=== PATIENT | male | born 1975 | race Two or more races ===

== ENCOUNTER 2024-07-06 11:48 | Emergency (ER) | payer MEDICAID, SELFPAY ==
[2024-07-06 11:49] VITALS: BMI 37.1
[2024-07-06 12:30] VITALS: BP 116/72; PULSE 95; RESP 18; TEMP 37.1; O2SAT 97
--- NOTE | 2024-07-06 12:31 | XR_ITS ---
Examination: Lumbar spine 3 views Technique one AP lateral coned lateral lower lumbar spine 3 views Date and time: July 06, 2024 1248 hours INDICATIONS: Injury to the back several years ago with more severe back pain the last 3 days FINDINGS: Lumbar levoscoliosis 8 degrees No lumbar fracture Mild disc narrowing L5-S1. No spondylolisthesis IMPRESSION: Mild disc narrowing L5-S1
--- NOTE | 2024-07-06 12:31 | XR_ITS ---
Examination: Thoracic spine 3 views Technique one AP lateral thoracic spine 2 views Date and time: July 06, 2024 1245 hours INDICATIONS: Back pain beginning 3 days ago injury several years ago FINDINGS: Adequate alignment thoracic vertebral bodies No acute thoracic fracture Mild diffuse thoracic disc narrowing IMPRESSION: Mild diffuse thoracic degenerative disc disease
--- NOTE | 2024-07-06 12:33 | EDNOTE_ITS ---
<Statement entered by Jessica Tidwell MD - 07/09/24 06:33> As co-signing physician, I was present and available for consult prn. I concur with the plan and care as documented by the midlevel provider. ED Back Injury Pain RME/HPI General Chief Complaint: Back Pain/Injury Stated Complaint: MID-BACK SCIATIC NERVE PAIN X2 DAYS Time Seen by Provider: 07/06/24 12:18 Source: patient Arrival date/time: 07/06/24 11:48 48-year-old male with no known medical history presents to the emergency room with a chief complaint of mid and lower back pain x 2 days. 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 Mode of arrival: ambulatory Limitations: no limitations Related Data Previous Rx's ?Medication ?Instructions ?Recorded baclofen 10 mg tablet 10 mg PO BID #14 tabs ibuprofen 600 mg tablet 600 mg PO Q6H PRN fever or p ain 10/07/18 #30 tabs chlordiazepoxide HCl 25 mg capsule 25 mg PO TID PRN al cohol 05/02/23 withdrawal #20 caps hydrocortisone 2.5 % topical cream [address] N hemorrhoids 05/19/23 with perineal applicator #30 grams (Procto-Med ) Allergies Allergy/AdvReac Type Severity Reaction Status Date / Time avocado Allergy Severe Swelling Verified 07/06/24 11:52 of Lip/Tongue/Throat grape Allergy Severe ITCHY Verified 07/06/24 11:52 THROAT orange juice Allergy Severe ITCHING Verified 07/06/24 11:52 THROAT peanut Allergy Severe ITCHY Verified 07/06/24 11:52 THROAT strawberry Allergy Severe ITCHY Verified 07/06/24 11:52 THROAT ORANGES Allergy Severe ITCHY Uncoded 07/06/24 11:52 THROAT WALNUTS Allergy Severe ITCHY Uncoded 07/06/24 11:52 THROAT Review of Systems Review of Systems Systems Reviewed: All systems reviewed, normal except as documented Constitutional Constitutional: Reports system reviewed and no additional complaints, except as documented, Denies fatigue, Denies fever(s), Denies headache(s) and Denies weakness Eyes Eyes: Reports system reviewed and no additional complaints, except as documented, Denies blurry vision and Denies change in vision ENT Ears, Nose, Mouth, and Throat: Reports system reviewed and no additional complaints, except as documented, Denies otalgia, Denies headache(s), Denies nasal congestion, Denies throat swelling and Denies vertigo Cardiovascular Cardiovascular: Reports system reviewed and no additional complaints, except as documented, Denies chest pain, Denies dyspnea and Denies dyspnea on exertion Respiratory Respiratory: Reports system reviewed and no additional complaints, except as documented, Denies chest congestion, Denies cough, Denies dyspnea, Denies dyspnea on exertion and Denies wheezing Gastrointestinal Gastrointestinal: Reports system reviewed and no additional complaints, except as documented, Denies abdominal pain, Denies cramping, Denies nausea and Denies vomiting Genitourinary Genitourinary: Reports system reviewed and no additional complaints, except as documented, Denies dysuria and Denies hematuria Musculoskeletal Musculoskeletal: Reports system reviewed and no additional complaints, except as documented and Reports back pain Integumentary/Breasts Skin/Breast: Reports system reviewed and no additional complaints, except as documented and Denies wounds Neurologic Neurologic: Reports system reviewed and no additional complaints, except as documented, Denies confusion, Denies headache(s), Denies lack of coordination, Denies vertigo and Denies weakness Psychiatric Psychiatric: Reports system reviewed and no additional complaints, except as documented, Denies anxiety, Denies confusion, Denies depression, Denies paranoia, Denies suicidal ideation and Denies tactile hallucinations Endocrine Endocrine: Reports system reviewed and no additional complaints, except as documented and Denies fatigue Hematologic/Lymphatic Hematologic/Lymphatic: Reports system reviewed and no additional complaints, except as documented and Denies lymphadenopathy Allergic/Immunologic Allergic/Immunologic: Reports system reviewed and no additional complaints, except as documented, Denies throat swelling, Denies urticaria and Denies wheezing Past Medical History Past Medical History CARDIAC: Negative Congestive Heart Failure RESPIRATORY: Positive Asthma; Negative Chronic Obstructive Pulmonary Disease (COPD) GENITOURINARY: Negative Renal Disease ENDOCRINE: Negative Diabetes Mellitus Type 1 or Diabetes Mellitus Type 2 Family History FAMILY HISTORY: Negative Family Cardiac Disorders Social History SMOKING STATUS: Current every day smoker SUBSTANCE USE: does not use (denies) ED Exam General Limitations: Present no limitations General appearance: Present alert and in no apparent distress Head Head exam: Present atraumatic Eye Eye exam: Present normal appearance, PERRL and EOMI ENT ENT exam: Present normal exam, normal oropharynx and mucous membranes moist Neck Neck exam: Present normal inspection, full ROM and trachea midline Chest Chest inspection: Present normal inspection and symmetric chest wall rise Respiratory Respiratory exam: Present normal lung sounds bilaterally Cardiovascular Cardiovascular exam: Present regular rate, normal rhythm and normal heart sounds Abdominal Exam Abdominal exam: Present soft and normal bowel sounds Extremities Exam Extremities exam: Present normal inspection and full ROM Back Exam Back exam: Present normal inspection, full ROM, tenderness and vertebral tenderness Neurological Exam Neurological exam: Present alert, oriented X3 and CN II-XII intact Psychiatric Psychiatric exam: Present normal affect and normal mood Skin Skin exam: Present warm, dry, intact and normal color Course Quality Measures none Orders Category Date Time Status XR lumbar spine 2-3V Stat Exams 07/06/24 12:31 Completed XR thoracic spine 2V Stat Exams 07/06/24 12:31 Completed Ketorolac Inj [Toradol Inj] Med 07/06/24 12:31 Discontinued 30 mg IM X1 ONE Vital Signs Vital signs: Vital Signs Temperature 98.8 F 07/06/24 12:30 Pulse Rate 95 07/06/24 12:30 Respiratory Rate 18 07/06/24 12:30 Blood Pressure 116/72 07/06/24 12:30 Pulse Oximetry (%) 97 07/06/24 12:30 Oxygen Delivery Method Room Air 07/06/24 12:30 O2 saturation 97% within normal limits Back Pain / Injury MDM Narrative MDM Narrative:: 48-year-old male with no known medical history presents to the emergency room with a chief complaint of mid and lower back pain x 2 days. 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 Patient is hemodynamically stable and in no apparent distress Physical examination shows tenderness and pain to the lumbar and thoracic area of the patient's spine. Patient denies any trauma states it could have been a lifting injury. X-rays of the lumbar spine and thoracic spine were completed and were negative for any acute fractures Patient was discharged and educated to follow-up with primary care provider in the next 24 to 48 hours and return to the emergency room for any evidence of worsening signs or symptoms Patient data External records reviewed:: [facility] previous records Clinical information provided by:: patient Social determinants that could affect healthcare access:: none Patient has the following chronic illnesses:: No chronic illness How is presenting disease/condition affected by chronic disease/condition?: no chronic disease Evaluation data The following diagnostics were reviewed and interpreted by me:: lab results and radiology exam(s) Lab and/or radiology exams considered but not ordered:: Labs and radiology exams considered in order Interpretation Summary: Lumbar spine-FINDINGS: Lumbar levoscoliosis 8 degrees No lumbar fracture Mild disc narrowing L5-S1. No spondylolisthesis IMPRESSION: Mild disc narrowing L5-S1 Thoracic spine-FINDINGS: Adequate alignment thoracic vertebral bodies No acute thoracic fracture Mild diffuse thoracic disc narrowing IMPRESSION: Mild diffuse thoracic degenerative disc disease Medications / Prescriptions Medications or Prescriptions considered but not ordered:: Medication given Medication administrations:: Medication Administration History Discontinued Medications Ketorolac Tromethamine (Ketorolac Inj 60 Mg/2 Ml Vial) 30 mg IM X1 ONE Stop: 07/06/24 12:32 Last Admin: 07/06/24 12:39 Dose: 30 mg Documented By: JT Medication given Consultations Consultation(s) initiated? (list below): No Diagnosis Differential diagnosis back pain/injury: lumbar radiculopathy, strain of lumbar region and thoracic back pain Most likely diagnosis given after review of the tests above:: Strain of lumbar region Admission Indicated Admission indicated?: not indicated Admission Request Was there a request for admission?: No Disposition Plan Disposition Plan: Discharge Discharge Attestation Discharge Attestation: The patient and all family members were given an opportunity to ask questions and understood the discharge instructions. Discharge instructions specifically effects, indications for sooner follow up or return to the emergency department, and the expected course of current diagnosis. Patient condition: Stable Discharge Plan Plan Patient Disposition: HOME (Self Care) Discharge Disposition comment: Stable Prescriptions/Referrals Prescriptions/Med Rec: No Action ibuprofen 600 mg tablet 600 mg PO Q6H PRN (Reason: fever or pain) Qty: 30 0RF baclofen 10 mg tablet 10 mg PO BID Qty: 14 0RF chlordiazepoxide HCl 25 mg capsule 25 mg PO TID PRN (Reason: alcohol withdrawal) Qty: 20 0RF hydrocortisone [Procto-Med HC] 2.5 % cream with perineal applicator [address] QDAY PRN (Reason: hemorrhoids) Qty: 30 0RF Problem List Clinical Impression: Degenerative disc disease Patient/Caregiver Discharge Instructions Additional Instructions: Please follow-up with your primary care provider in the next 24 to 48 hours. X-rays of your lumbar spine and thoracic spine were negative for any acute fracture or dislocation Please follow-up with your primary care provider if your sinus symptoms continue as an MRI will be indicated For any evidence of worsening signs or symptoms return to the emergency room immediately Print Language: Ug[place] Stand Alone Forms: Cami Award Info., Work/School Release, Patient Portal Info Letter PA/ADULT MANAGER Supervising Physician PA/ADULT MANAGER Supervising Physician: Dr. TIDWELL
[2024-07-06] MEDS: KETOROLAC INJ 60 MG/2 ML VIAL 30 MG IM (12:39)
== END 2024-07-06 13:47 | disposition home or self-care (01) ==
LOC: SERX 13:45
PROVIDERS: Emergency Provider Emergency Medicine
DX: M51.34 Other intervertebral disc degeneration, thoracic region (principal)
CPT/HCPCS: 72070; 72100; 96372; 99283; J1885